=== PATIENT | female | born 1965 | race Caucasian/White ===

== ENCOUNTER 2020-02-10 07:10 | Inpatient (IN) | payer OTHER ==
[~2020-02-10] VITALS: Ht 170.2 cm; Wt 62.1 kg
[2020-02-10] VITALS (26 sets, daily range): BP systolic 106–136; BP diastolic 49–79
[2020-02-10] MEDS ORDERED: LACTATED RINGERS 1000ML 1,000 ML IV ONE (07:58)
[2020-02-10 08:23] LABS: BASOPHILS % (AUTO) 1.2 % (0.0-5.0); EOSINOPHILS % (AUTO) 3.6 % (0.0-8.0); HEMATOCRIT 39.9 % (36-48); LYMPHOCYTES % (AUTO) 24.5 % (21.0-51.0); MEAN CORPUSCULAR HEMOGLOBIN 28.7 pg (27.0-33.0); MEAN CORPUSCULAR HGB CONC 32.3 g/dL (32.0-36.0); MEAN CORPUSCULAR VOLUME 88.7 fL (79-99); NEUTROPHILS % (AUTO) 60.4 % (40.0-77.0); PLATELET COUNT (AUTO) 206 K/uL (130-400); WHITE BLOOD COUNT (AUTO) 5.9 K/uL (4.8-10.8)
[2020-02-10 08:41] LABS: INR 0.95 (0.85-1.15); PARTIAL THROMBOPLASTIN TIME 26.2 SEC (26.3-35.5); PROTHROMBIN TIME 10.3 SEC (9.6-11.6)
[2020-02-10 08:47] LABS: CREATININE 0.9 mg/dL (0.5-1.5); POTASSIUM 3.2 mmol/L (3.5-5.1)
[2020-02-10] MEDS: CEFAZOLIN SODIUM 1 GM VIAL IVP ONE ×2 (09:15→11:20)
[2020-02-10] MEDS ORDERED: CALC500T13 PO (09:21)
[2020-02-10] MEDS ORDERED: SUCR1TAB2 PO (09:21)
[2020-02-10] MEDS ORDERED: METO10TA3 PO (09:21)
[2020-02-10] MEDS ORDERED: LEVO100T12 PO (09:21)
[2020-02-10] MEDS ORDERED: TRINTELLIX PO (09:21)
[2020-02-10] MEDS ORDERED: PROM25TA7 PO (09:21)
[2020-02-10] MEDS ORDERED: BISM262O28 PO (09:21)
[2020-02-10] MEDS ORDERED: ONDA4TAB10 SL (09:21)
[2020-02-10] MEDS ORDERED: PANT40TA25 PO (09:21)
[2020-02-10] MEDS ORDERED: CALC-1105 PO (09:21)
--- NOTE | 2020-02-10 09:22 | NUR ---
POTASSIUM INFORMED Eliceo CAMPBELL CRNA OF ABNORMAL POTASSIUM. NO ORDERS RECEIVED.
[2020-02-10] MEDS ORDERED: LIDOCAINE PF 2% 5ML ABBOJECT ONE (10:53)
[2020-02-10] MEDS ORDERED: DEXAMETHASONE SOD PHOSPHATE 10MG/ML 1ML VIAL ONE (10:53)
[2020-02-10] MEDS ORDERED: ONDANSETRON HCL 4 MG/2 ML VIAL ONE (10:54)
[2020-02-10] MEDS ORDERED: ROCURONIUM 10MG/1ML SYR 10 MG/ML ML ONE (10:54)
[2020-02-10] MEDS ORDERED: FENTANYL CITRATE PF 50 MCG/1 ML 2ML VIAL ONE (10:54)
[2020-02-10] MEDS ORDERED: MIDAZOLAM HCL 1 MG/ML 2ML VIAL ONE (10:54)
[2020-02-10] MEDS ORDERED: PROPOFOL 10 MG/ML 20ML VIAL IV ONE (10:54)
--- NOTE | 2020-02-10 11:04 | NUR ---
EKG Eliceo GAGNON CRNA AWARE OF EKG. NO ORDERS RECEIVED.
[2020-02-10] MEDS ORDERED: EPHEDRINE SULFATE 50 MG/ML AMPULE ONE (11:27)
[2020-02-10] MEDS ORDERED: BUPIVACAINE/PF 0.5% 30ML VIAL ONE (12:06)
[2020-02-10] MEDS ORDERED: POTASSIUM CHLORIDE 20MEQ/100ML 100 ML IV ONE (12:59)
[2020-02-10] MEDS ORDERED: GLYCOPYRROLATE 1 MG/5 ML SYRINGE ONE (13:18)
[2020-02-10] MEDS ORDERED: NEOSTIGMINE 5MG/5ML SYR IV ONE (13:23)
[2020-02-10] MEDS ORDERED: MEPERIDINE-PF 25 MG/ML SYG ONE ×2 (13:52→14:24)
[2020-02-10] MEDS ORDERED: ONDANSETRON HCL 4 MG/2 ML VIAL IVP PRN (16:15)
[2020-02-10] MEDS: LACTATED RINGERS 1000ML 1,000 ML IV SCH (16:22)
[2020-02-10] MEDS: MORPHINE SULFATE 4 MG/1ML SYG IVP PRN ×2 (16:24→21:46)
[2020-02-10] MEDS: CEFAZOLIN SODIUM 1 GM VIAL IVP SCH (17:33)
[2020-02-10] MEDS: KETOROLAC TROMETHAMINE 30MG/ML IV PRN (18:38)
[2020-02-11] MEDS: LACTATED RINGERS 1000ML 1,000 ML IV SCH ×4 (00:15→20:34)
[2020-02-11 00:20] VITALS: BP 91/35
[2020-02-11] MEDS: CEFAZOLIN SODIUM 1 GM VIAL IVP SCH (02:18)
[2020-02-11] MEDS: KETOROLAC TROMETHAMINE 30MG/ML IV PRN ×3 (02:22→17:53)
[2020-02-11 04:10] VITALS: BP 93/40
[2020-02-11 04:19] LABS: MEAN CORPUSCULAR HEMOGLOBIN 28.6 pg (27.0-33.0); MEAN CORPUSCULAR HGB CONC 31.8 g/dL (32.0-36.0); MEAN CORPUSCULAR VOLUME 89.9 fL (79-99); RED BLOOD CELL COUNT(AUTO) 3.67 MIL/uL (4.00-5.50); RED CELL DISTRIBUTION WIDTH 15.1 % (11.0-15.5); WHITE BLOOD COUNT (AUTO) 12.8 K/uL (4.8-10.8)
[2020-02-11 04:30] LABS: CREATININE 0.7 mg/dL (0.5-1.5); POTASSIUM 3.8 mmol/L (3.5-5.1)
[2020-02-11] MEDS: LEVOTHYROXINE 100 MCG TABLET PO SCH (08:27)
[2020-02-11 08:38] VITALS: BP 92/39
[2020-02-11] MEDS: PANTOPRAZOLE 40 MG/VIAL IVP SCH (09:35)
[2020-02-11 17:13] VITALS: BP 91/46
[2020-02-11 19:49] VITALS: BP 106/49
[2020-02-11] MEDS: MORPHINE SULFATE 4 MG/1ML SYG IVP PRN (20:35)
[2020-02-12 03:41] VITALS: BP 88/41
--- NOTE | 2020-02-12 06:21 | NUR ---
received report from itzel nogueira nurse, assumed care, introduced self, shift assessment done, timed medication given see emar, safety maintained, bed in lowest position, pain medication given , pre and post pain assessment done, 24 cc done.
[2020-02-12 07:30] VITALS: BP 96/39
[2020-02-12] MEDS: LACTATED RINGERS 1000ML 1,000 ML IV SCH ×2 (10:01→16:24)
[2020-02-12] MEDS: PANTOPRAZOLE 40 MG/VIAL IVP SCH (10:01)
[2020-02-12] MEDS: KETOROLAC TROMETHAMINE 30MG/ML IV PRN ×2 (10:02→20:54)
[2020-02-12] MEDS: LEVOTHYROXINE 100 MCG TABLET PO SCH (10:23)
[2020-02-12 11:00] VITALS: BP 110/46
[2020-02-12 15:37] VITALS: BP 109/40
[2020-02-12 19:05] VITALS: BP 103/51
[2020-02-12 23:17] VITALS: BP 115/56
[2020-02-13] MEDS: LACTATED RINGERS 1000ML 1,000 ML IV SCH ×3 (00:15→19:00)
[2020-02-13 03:35] VITALS: BP 105/55
[2020-02-13 08:00] VITALS: BP 116/56
[2020-02-13] MEDS: LEVOTHYROXINE 100 MCG TABLET PO SCH (09:00)
[2020-02-13] MEDS: PANTOPRAZOLE 40 MG/VIAL IVP SCH (09:00)
[2020-02-13 12:00] VITALS: BP 121/52
[2020-02-13 16:00] VITALS: BP 125/50
--- NOTE | 2020-02-13 18:52 | NUR ---
DCP CM met with pt discussed dc plans. Pt is independent prior to admission, lives at home with spouse, step Mom, and 20 y/o son. Denies any equipments/services. Feels safe to go back home, still works and drives, spouse able to assist with transportation and needs as necessary. DC plan to home once stable. CM to cont to follow up. Addendum: 02/13/20 at 1854 by VERA BACON LVN CM Amended: Links added.
[2020-02-13 21:02] VITALS: BP 105/73
[2020-02-13] MEDS: KETOROLAC TROMETHAMINE 30MG/ML IV PRN (23:40)
[2020-02-14] VITALS: BP 115/54
[2020-02-14] MEDS: LACTATED RINGERS 1000ML 1,000 ML IV SCH (00:15)
[2020-02-14 04:00] VITALS: BP 102/47
[2020-02-14 07:30] VITALS: BP 102/40
[2020-02-14 11:00] VITALS: BP 118/50
[2020-02-14] MEDS: LEVOTHYROXINE 100 MCG TABLET PO SCH (12:24)
[2020-02-14] MEDS: PANTOPRAZOLE 40 MG/VIAL IVP SCH (12:25)
--- NOTE | 2020-02-14 14:01 | NUR ---
Patient discharged to home with written and verbal instructions to care for suture line with juanita, INT removed and patient left via wheelchair.
== END 2020-02-14 14:00 | disposition home or self-care (01) | DRG 328 ==
LOC: DAHIP 07:10 → EDSTATUS 09:30 → 3CH 15:06
PROVIDERS: ADMIT Surgery; ATTEND Surgery
PROC: 0DJ64ZZ Inspection of Stomach, Percutaneous Endoscopic Approach (ICD-10-PCS; principal; 2020-02-10 10:30)
PROC: 0DP60CZ Removal of Extraluminal Device from Stomach, Open Approach (ICD-10-PCS; 2020-02-10 10:30)
DX: K25.9 Gastric ulcer, unspecified as acute or chronic, without hemorrhage or perforation (principal); Z53.31 Laparoscopic surgical procedure converted to open procedure; F32.9 Major depressive disorder, single episode, unspecified; K21.9 Gastro-esophageal reflux disease without esophagitis; E03.9 Hypothyroidism, unspecified; Z20.828 Contact with and (suspected) exposure to other viral communicable diseases
CPT/HCPCS: 36415; 43235; 71045; 80048; 85025; 85027; 85610; 85730; 87426; 93005; C9113; G0378; J0690; J1100; J1885; J2001; J2175; J2250; J2270; J2405; J2704; J2710; J3010; J3480; J3490; J7030; J7120; U0003